=== PATIENT | female | born 2000 | race Caucasian/White ===

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

== ENCOUNTER 2018-11-25 12:55 | Emergency (ER) | payer MEDICAID, OTHER ==
[~2018-11-25] VITALS: Ht 167.6 cm; Wt 77.1 kg
[~2018-11-25 12:55] MED LIST: NAPR-514 PO
[2018-11-25] MEDS ORDERED: IV NORMAL SALINE 1,000ML 1,000 ML IV ONE ×2 (13:00→15:45)
[2018-11-25] MEDS ORDERED: ONDANSETRON PF 4 MG/2 ML VIAL. IV ONE (13:00)
[2018-11-25] MEDS ORDERED: ACETAMINOPHEN 325 MG TABLET PO ONE (13:15)
[2018-11-25] MEDS ORDERED: MORPHINE SULFATE 2 MG/ML DISP.SYRIN. IV ONE ×2 (13:15→17:30)
--- NOTE | 2018-11-25 13:29 | PHYS DOC ---
Past History Past Medical History: No Pertinent History Past Surgical History: No Surgical History Smoking: Cigarettes Alcohol Use: None Drug Use: None Adult General Chief Complaint Chief Complaint: ABDOMINAL PAIN HPI HPI 18-year-old female presents with abdominal pain, vomiting, diarrhea. The patient was drinking vodka last night and began have some upper abdominal and right- sided abdominal pain. She began to have vomiting and diarrhea around 3 AM. Every time she vomits she has diarrhea. She continues to have epigastric abdominal pain as well as diffuse abdominal pain. The patient has not had any abdominal surgeries. She denies fever or chills. She was feeling normal yesterday. The patient has a history of ovarian cysts. Review of Systems Review of Systems Constitutional: Denies fever or chills [] Eyes: Denies change in visual acuity, redness, or eye pain [] HENT: Denies nasal congestion or sore throat [] Respiratory: Denies cough or shortness of breath [] Cardiovascular: No additional information not addressed in HPI [] GI: abdominal pain, nausea, vomiting, diarrhea [] : Denies dysuria or hematuria [] Musculoskeletal: Denies back pain or joint pain [] Integument: Denies rash or skin lesions [] Neurologic: Denies headache, focal weakness or sensory changes [] Endocrine: Denies polyuria or polydipsia [] All other systems were reviewed and found to be within normal limits, except as documented in this note. Current Medications Current Medications Current Medications Medications (Trade) Dose Ordered Sig/Jay Start Time Stop Time Status Last Admin Dose Admin Acetaminophen (Tylenol) 650 mg 1X ONCE 11/25/18 13:15 11/25/18 13:16 DC 11/25/18 13:18 650 MG Morphine Sulfate (Morphine 2mg Syringe) 2 mg 1X ONCE 11/25/18 13:15 11/25/18 13:16 DC 11/25/18 13:18 2 MG Ondansetron HCl (Zofran) 4 mg 1X ONCE 11/25/18 13:00 11/25/18 13:08 DC 11/25/18 13:18 4 MG Sodium Chloride 1,000 ml @ 1,000 mls/hr 1X ONCE 11/25/18 13:00 11/25/18 13:59 11/25/18 13:19 1,000 MLS/HR Allergies Allergies Allergies Coded Allergies Type Severity Reaction Last Updated Verified triamcinolone Allergy Unknown 12/23/16 Yes Physical Exam Physical Exam Constitutional: Well developed, well nourished, no acute distress, non-toxic appearance. [] HENT: Normocephalic, atraumatic, bilateral external ears normal, oropharynx moist, no oral exudates, nose normal. [] Eyes: PERRLA, EOMI, conjunctiva normal, no discharge. [] Neck: Normal range of motion, no tenderness, supple, no stridor. [] Cardiovascular:Heart rate regular rhythm, no murmur [] Lungs & Thorax: Bilateral breath sounds clear to auscultation [] Abdomen: Bowel sounds normal, soft, mild epigastric tenderness, no masses, no pulsatile masses. [] Skin: Warm, dry, no erythema, no rash. [] Back: No tenderness, no CVA tenderness. [] Extremities: No tenderness, no cyanosis, no clubbing, ROM intact, no edema. [] Neurologic: Alert and oriented X 3, normal motor function, normal sensory function, no focal deficits noted. [] Psychologic: Affect normal, judgement normal, mood normal. [] Current Patient Data Vital Signs Vital Signs Date Time Temp Pulse Resp B/P (MAP) Pulse Ox O2 Delivery O2 Flow Rate FiO2 11/25/18 13:18 Room Air EKG EKG [] Radiology/Procedures Radiology/Procedures [] Impressions: PQRS Compliance Statement: One or more of the following individualized dose reduction techniques were utilized for this examination: 1. Automated exposure control 2. Adjustment of the mA and/or kV according to patient size 3. Use of iterative reconstruction technique CT ABD PELV W/ IV CONTRST ONLY Clinical Indication: Right lower quadrant pain. Comparison: CT abdomen and pelvis with contrast, February 18, 2016. Technique: Helical CT imaging of the abdomen and pelvis is performed after 75 cc of Omnipaque 300 IV contrast. Oral contrast not given. Findings: Mild atelectasis in the posterior left lower lobe. Cardiac size normal. The liver, gallbladder, spleen, pancreas, adrenal glands, and abdominal aorta are normal. The kidneys enhance symmetrically without hydronephrosis. There is a 4 mm nonobstructing calculus in the lower pole of the left kidney. Stomach unremarkable. There is scattered stool and fluid in the colon. There is no colon wall thickening. Distal small bowel is upper limits of normal in caliber and is fluid-filled. No wall thickening of small bowel is identified. The appendix is normal. There is no abdominal adenopathy or free fluid. Urinary bladder is normal. Uterus and ovaries unremarkable. No pelvic free fluid is seen. No acute bone abnormality. IMPRESSION: 1. Approximately the distal third of the small bowel is upper limits of normal in caliber and is fluid-filled. No mucosal fold thickening of small bowel or obstruction is seen. Considerations include nonspecific enteritis or ileus. 2. The appendix is normal. 3. Nonobstructing left renal calculus. Electronically signed by: Dru Vargas MD (11/25/2018 3:19 PM) [id number] DICTATED AND SIGNED BY: DRU VARGAS MD DATE: 11/25/18 1519 CC: CHANDLER CASATNEDA DO; TESSA FRAGOSO MD ~ Course & Med Decision Making Course & Med Decision Making Pertinent Labs and Imaging studies reviewed. (See chart for details) The patient's labs are unremarkable. Her urinalysis is suggestive of UTI and there is a lot of blood. I will treat her with 1 g Rocephin. The patient still has pain 7 out of 10. I will CT the abdomen and pelvis. The CT scan shows dilated distal third of the small bowel without obvious obstruction. Ileus is in the differential. See official report for more details. The patient continues to be tachycardic with a lying blood pressure. Lactic acid, blood cultures, and d-dimer were ordered. Lactic acid is within normal limits. The d-dimer is normal. I discussed the patient with Dr. Disla and he has accepted the patient for admission, but he wants her admitted to [facility]. The patient is in agreement with this plan. She will go by ambulance. [] Dragon Disclaimer Dragon Disclaimer This electronic medical record was generated, in whole or in part, using a voice recognition dictation system. Departure Departure: Impression: Primary Impression: Abdominal pain Additional Impression: UTI (urinary tract infection) Disposition: XF [facility]ON LICENSE OF [facility] Admitting Physician: Stevie Disla Condition: STABLE Referrals: PCP,NO (PCP) Problem Qualifiers Primary Impression: Abdominal pain Abdominal location: right lower quadrant Qualified Codes: R10.31 - Right lower quadrant pain Additional Impression: UTI (urinary tract infection) Urinary tract infection type: acute cystitis Hematuria presence: with hematuria Qualified Codes: N30.01 - Acute cystitis with hematuria CHANDLER CASTANEDA DO Nov 25, 2018 13:29
[2018-11-25 13:38] LABS: BASO % 0 % (0-3); EOS % 1 % (0-3); HEMATOCRIT 40.5 % (36.0-47.0); HEMOGLOBIN 13.3 g/dL (12.0-15.5); LYMPH # 0.6 x10^3/uL (1.0-4.8); LYMPH % 8 % (24-48); MEAN CORPUSCULAR HEMOGLOBIN 28 pg (25-35); MEAN CORPUSCULAR HGB CONC 33 g/dL (31-37); MEAN CORPUSCULAR VOLUME 84 fL (79-100); MONO # 0.4 x10^3/uL (0.0-1.1); MONO % 5 % (0-9); NEUT # 7.1 x10^3uL (1.8-7.7); NEUT % 87 % (31-73); PLATELET COUNT 258 x10^3/uL (140-400); RED BLOOD COUNT 4.83 x10^6/uL (3.50-5.40); RED CELL DISTRIBUTION WIDTH 14.8 % (11.5-14.5); WHITE BLOOD COUNT 8.2 x10^3/uL (4.0-11.0)
[2018-11-25 13:51] LABS: ALBUMIN 3.7 g/dL (3.4-5.0); ALBUMIN/GLOBULIN RATIO 0.9 (1.0-1.7); CALCIUM 8.9 mg/dL (8.5-10.1); CREATININE 0.7 mg/dL (0.6-1.0); GFR 106.7; POTASSIUM 4.4 mmol/L (3.5-5.1); TOTAL BILIRUBIN 0.5 mg/dL (0.2-1.0); TOTAL PROTEIN 7.8 g/dL (6.4-8.2)
[2018-11-25 13:52] LABS: BACTERIA,URINE MOD /HPF (0-FEW); BILIRUBIN,URINE NEG (NEG); CLARITY,URINE HAZY; COLOR,URINE YELLOW; GLUCOSE,URINE NEG (NEG); NITRITE,URINE NEG (NEG); UROBILINOGEN,URINE 0.2 mg/dL (0.2 mg/dL)
[2018-11-25 13:53] LABS: AMORPHOUS SEDIMENT,UR PRESENT /HPF; SQUAMOUS EPITHELIAL CELL,UR MANY /LPF
[2018-11-25] MEDS ORDERED: IOHEXOL 300 MG/ML 75 ML VIAL. IV ONE (14:30)
--- NOTE | 2018-11-25 15:22 | RAD ---
PQRS Compliance Statement: One or more of the following individualized dose reduction techniques were utilized for this examination: 1. Automated exposure control 2. Adjustment of the mA and/or kV according to patient size 3. Use of iterative reconstruction technique CT ABD PELV W/ IV CONTRST ONLY Clinical Indication: Right lower quadrant pain. Comparison: CT abdomen and pelvis with contrast, February 18, 2016. Technique: Helical CT imaging of the abdomen and pelvis is performed after 75 cc of Omnipaque 300 IV contrast. Oral contrast not given. Findings: Mild atelectasis in the posterior left lower lobe. Cardiac size normal. The liver, gallbladder, spleen, pancreas, adrenal glands, and abdominal aorta are normal. The kidneys enhance symmetrically without hydronephrosis. There is a 4 mm nonobstructing calculus in the lower pole of the left kidney. Stomach unremarkable. There is scattered stool and fluid in the colon. There is no colon wall thickening. Distal small bowel is upper limits of normal in caliber and is fluid-filled. No wall thickening of small bowel is identified. The appendix is normal. There is no abdominal adenopathy or free fluid. Urinary bladder is normal. Uterus and ovaries unremarkable. No pelvic free fluid is seen. No acute bone abnormality. IMPRESSION: 1. Approximately the distal third of the small bowel is upper limits of normal in caliber and is fluid-filled. No mucosal fold thickening of small bowel or obstruction is seen. Considerations include nonspecific enteritis or ileus. 2. The appendix is normal. 3. Nonobstructing left renal calculus. Electronically signed by: Dru Vargas MD (11/25/2018 3:19 PM) [id number]
[2018-11-25] MEDS ORDERED: cefTRIAXone SODIUM 1 GM VIAL ONE (15:35)
[2018-11-25] MEDS ORDERED: IV NORMAL SALINE 50ML 50 ML ONE (15:35)
--- NOTE | 2018-11-25 16:19 | EKG ---
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
[2018-11-25] MEDS ORDERED: MORPHINE SULFATE 2 MG/ML DISP.SYRIN. ONE (17:19)
[2018-11-25] MEDS ORDERED: IV DEXTROSE 5% - 0.9 % NACL 1,000 ML IV ONE (17:30)
[2018-11-25 17:55] VITALS: BP 106/59
== END 2018-11-25 18:00 | disposition short-term general hospital (02) ==
LOC: ER 12:55
DX: N30.01 Acute cystitis with hematuria (principal); F17.210 Nicotine dependence, cigarettes, uncomplicated; R19.7 Diarrhea, unspecified; Z88.8 Allergy status to other drugs, medicaments and biological substances
CPT/HCPCS: 36415; 74177; 80053; 81001; 81025; 83605; 84484; 85025; 85379; 87040; 87086; 93005; 96361; 96365; 96375; 96376; 99285; J0696; J2270; J2405; J7042; Q9967; J7030

== ENCOUNTER 2018-12-06 15:33 | Emergency (ER) | payer OTHER ==
[~2018-12-06] VITALS: Ht 167.6 cm; Wt 71.0 kg
[2018-12-06 15:33] VITALS: BP 114/66
--- NOTE | 2018-12-06 16:08 | RAD ---
Examination: 3 views of the left knee HISTORY: History of knee pain COMPARISON: None available. FINDINGS: The alignment of the knee joint grossly appears unremarkable. There is no acute fracture dislocation identified. IMPRESSION: No acute osseous findings. Electronically signed by: Best Pineda MD (12/06/2018 4:04 PM) [facility]
--- NOTE | 2018-12-06 16:13 | PHYS DOC ---
Past History Past Medical History: Other Past Surgical History: No Surgical History Smoking: Cigarettes Alcohol Use: None Drug Use: None Adult General Chief Complaint Chief Complaint: LOWER EXT PAIN HPI HPI Patient is a 18-year-old female who presents with complaint of left knee pain for the last few months. Patient states that she is not aware of any injury and has not had any recent injuries. He states that pain has been ongoing and is progressively getting worse. She states that over the last few days, she has had difficulty with walking due to the pain. She also complains of sore throat and states that she saw an ulceration around her uvula.[] Review of Systems Review of Systems Constitutional: Denies fever or chills [] HENT: Positive sore throat [] Respiratory: Denies cough or shortness of breath [] Cardiovascular: No additional information not addressed in HPI [] Musculoskeletal: Positive left knee pain [] Allergies Allergies Allergies Coded Allergies Type Severity Reaction Last Updated Verified triamcinolone Allergy Unknown 12/23/16 Yes Physical Exam Physical Exam Constitutional: Well developed, well nourished, no acute distress, non-toxic appearance. [] HENT: Normocephalic, atraumatic, there is pharyngeal erythema with small ulceration noted on the uvula. [] Eyes: PERRLA, EOMI, conjunctiva normal, no discharge. [] Neck: Normal range of motion, no tenderness, supple, no stridor. [] Cardiovascular:Heart rate regular rhythm, no murmur [] Lungs & Thorax: Bilateral breath sounds clear to auscultation [] Current Patient Data Vital Signs Vital Signs Date Time Temp Pulse Resp B/P (MAP) Pulse Ox O2 Delivery O2 Flow Rate FiO2 12/06/18 15:33 97.9 52 14 99 Room Air EKG EKG [] Radiology/Procedures Radiology/Procedures [] Impressions: PROCEDURE: KNEE LEFT 3V Examination: 3 views of the left knee HISTORY: History of knee pain COMPARISON: None available. FINDINGS: The alignment of the knee joint grossly appears unremarkable. There is no acute fracture dislocation identified. IMPRESSION: No acute osseous findings. Electronically signed by: Best Pineda MD (12/06/2018 4:04 PM) [facility] Course & Med Decision Making Course & Med Decision Making Pertinent Labs and Imaging studies reviewed. (See chart for details) [] Dragon Disclaimer Dragon Disclaimer This electronic medical record was generated, in whole or in part, using a voice recognition dictation system. Departure Departure: Impression: Primary Impression: Left knee pain Additional Impression: Canker sore Disposition: 01 HOME, SELF-CARE Condition: STABLE Referrals: TESSA FRAGOSO MD (PCP) Patient Instructions: Canker Sores, Knee Pain Scripts Lidocaine HCl (Lidocaine HCl Viscous) 15 Ml Solution 1 ML MM Q2HR PRN for MOUTH PAIN, #100 ML Prov: SAMAN MUELLER Jr. DO 12/06/18 Diclofenac Sodium (DICLOFENAC SODIUM) 50 Mg Tablet.dr 1 TAB PO BID PRN for PAIN, #20 TAB Prov: SAMAN MUELLER Jr. DO 12/06/18 Problem Qualifiers Primary Impression: Left knee pain Chronicity: unspecified Qualified Codes: M25.562 - Pain in left knee SAMAN MUELLER Jr. DO Dec 06, 2018 16:13
[2018-12-06] MEDS ORDERED: LIDO15SO2 MM (16:59)
[2018-12-06] MEDS ORDERED: DICL50TA4 PO (16:59)
== END 2018-12-06 17:07 | disposition home or self-care (01) ==
LOC: ER 15:33
DX: M25.562 Pain in left knee (principal); K12.0 Recurrent oral aphthae; F17.210 Nicotine dependence, cigarettes, uncomplicated; Z88.8 Allergy status to other drugs, medicaments and biological substances
CPT/HCPCS: 73562; 87070; 87880; 99285